=== PATIENT | female | born 1935 | race Caucasian/White ===

== ENCOUNTER 2017-05-20 08:16 | Day surgery (SDC) | payer MEDICARE, OTHER ==
[2017-05-20] MEDS ORDERED: TYLENOL 325 MG PO ONE (08:29)
[2017-05-20] MEDS ORDERED: BENADRYL 50 MG/ML IV ONE (08:29)
[2017-05-20] MEDS ORDERED: Sodium Chloride 0.9% 1000 ML 1,000 ML IV SCH (08:30)
[2017-05-20] MEDS ORDERED: TYLENOL 325 MG ONE (08:31)
[2017-05-20] MEDS ORDERED: BENADRYL 50 MG/ML ONE (08:31)
[2017-05-20] MEDS ORDERED: Sodium Chloride 0.9% 1000 ML 1,000 ML ONE (08:31)
[2017-05-20 14:37] VITALS: BP 129/67; PULSE 72; O2SAT 96
== END 2017-05-20 14:43 | disposition home or self-care (01) ==
LOC: INFUSION 08:16
PROVIDERS: ATTEND Internal Medicine Hematology & Oncology
DX: D64.9 Anemia, unspecified (principal)
CPT/HCPCS: 36415; 36430; 85014; 85018; 86850; 86900; 86901; 86922; 96365; 96366; J1200; A9270-GY

== ENCOUNTER 2017-07-14 08:20 | Day surgery (SDC) | payer MEDICARE, OTHER ==
[~2017-07-14 08:20] MED LIST: BENADRYL 50 MG/ML IV ONE; BENADRYL 50 MG/ML ONE; Sodium Chloride 0.9% 1000 ML 1,000 ML IV SCH; Sodium Chloride 0.9% 1000 ML 1,000 ML ONE; TYLENOL 325 MG ONE; TYLENOL 325 MG PO ONE
[2017-07-14 15:19] VITALS: BP 135/69; PULSE 78; O2SAT 97
== END 2017-07-14 15:00 | disposition home or self-care (01) ==
LOC: INFUSION 08:20
PROVIDERS: ATTEND Internal Medicine Hematology & Oncology
DX: D64.9 Anemia, unspecified (principal); F41.9 Anxiety disorder, unspecified; K21.9 Gastro-esophageal reflux disease without esophagitis; J30.9 Allergic rhinitis, unspecified; N39.0 Urinary tract infection, site not specified
CPT/HCPCS: 96365; 96366; 85014 ×2; 85018 ×2; 36415 ×2; 86850; 86900; 86901; 86922; P9016; 36430; J1200; A9270-GY

== ENCOUNTER 2017-08-10 08:07 | Day surgery (SDC) | payer MEDICARE, OTHER ==
[~2017-08-10 08:07] MED LIST changes: -BENADRYL 50 MG/ML ONE; -Sodium Chloride 0.9% 1000 ML 1,000 ML ONE; -TYLENOL 325 MG ONE
[2017-08-10] MEDS ORDERED: BENADRYL 50 MG/ML ONE (08:20)
[2017-08-10] MEDS ORDERED: Sodium Chloride 0.9% 1000 ML 1,000 ML ONE (08:20)
[2017-08-10] MEDS ORDERED: TYLENOL 325 MG ONE (08:20)
[2017-08-10 14:21] VITALS: BP 142/75; PULSE 72; O2SAT 95
== END 2017-08-10 14:55 | disposition home or self-care (01) ==
LOC: SDC 08:07
PROVIDERS: ATTEND Internal Medicine Hematology & Oncology
DX: D64.9 Anemia, unspecified (principal)
CPT/HCPCS: 36415; 36430; 85014; 85018; 86850; 86900; 86901; 86922; 96365; 96366; J1200; A9270-GY